=== PATIENT | female | born 1960 | race Asian ===

== ENCOUNTER 2022-04-17 13:06 | Emergency (ER) | payer OTHER ==
[~2022-04-17] VITALS: Ht 152.4 cm; Wt 56.2 kg
--- NOTE | 2022-04-17 13:24 | NUR ---
BIBFRIEND C/O RLE SWELLING, R SIDED GROIN AREA PAIN X 3 DAYS. AMBULATORY, PLACED ON BED, AAOX4, SWELLING OF R LEG NOTICED AND WARM TO TOUCH, IN PAIN 5/10 PS.
--- NOTE | 2022-04-17 13:28 | NUR ---
URINE SAMPLE COLLECTED
--- NOTE | 2022-04-17 13:35 | NUR ---
X-RAY TECH. AT BED SIDE
--- NOTE | 2022-04-17 13:40 | NUR ---
INTERNSHIP. AT BED SIDE
[2022-04-17 13:49] LABS: BASOPHILS % (AUTO) 0.8 % (0.0-2.0); EOSINOPHILS % (AUTO) 2.7 % (0.0-6.0); HEMATOCRIT 32 % (33-45); HEMOGLOBIN 10.3 g/dL (11.5-14.8); LYMPHOCYTES # (AUTO) 1.3 K/uL (0.8-4.8); LYMPHOCYTES % (AUTO) 22.5 % (20.0-44.0); MEAN CORPUSCULAR HGB CONC 32 g/dl (31.0-36.0); MEAN CORPUSCULAR VOLUME 90 fL (82-100); MONOCYTES # (AUTO) 0.6 K/uL (0.1-1.30); NEUTROPHILS # (AUTO) 3.8 K/uL (1.8-8.9); PLATELET COUNT (AUTO) 533 K/uL (150-450); RED BLOOD CELL COUNT(AUTO) 3.55 MIL/uL (4.0-5.2)
[2022-04-17 14:00] LABS: CALCIUM, SERUM 9.1 mg/dL (8.5-10.1); CARBON DIOXIDE 32 mmol/L (21-32); CHLORIDE 101 mmol/L (98-107); CREATININE 0.8 mg/dL (0.6-1.3); GLUCOSE 109 mg/dL (74-106); POTASSIUM 3.9 mmol/L (3.5-5.1); SODIUM SERUM 139 mmol/L (136-145); UREA NITROGEN, BLOOD 9 mg/dL (7-18)
[2022-04-17 14:06] LABS: ALANINE AMINOTRANSFERASE 12 U/L (12-78); ALBUMIN 3.5 g/dL (3.4-5.0); ALKALINE PHOSPHATASE 123 U/L (46-116); ASPARTATE AMINOTRANSFERASE 15 U/L (15-37); BILIRUBIN,DIRECT 0.1 mg/dL (0.0-0.2); BILIRUBIN,TOTAL 0.3 mg/dL (0.2-1.0); TOTAL PROTEIN, SERUM 8.2 g/dL (6.4-8.2)
--- NOTE | 2022-04-17 15:11 | NUR ---
DOPPLER U/S TECH AT BED SIDE
[2022-04-17] MEDS ORDERED: FUROSEMIDE 40 MG/4 ML VIAL ONE (15:34)
[2022-04-17] MEDS ORDERED: FUROSEMIDE 40 MG/4 ML VIAL IV ONE (16:00)
[2022-04-17] MEDS ORDERED: FURO-145 PO (18:14)
[2022-04-17] MEDS ORDERED: POTA-58 PO (18:14)
--- NOTE | 2022-04-17 18:54 | NUR ---
IV removed. Catheter intact and site benign. Pressure and 4x4 applied to site. No bleeding noted.Patient discharged to home in stable condition. Written and verbal after care instructions given. Patient verbalizes understanding of instruction.
[2022-04-17 18:55] VITALS: BP 145/75
== END 2022-04-17 18:30 | disposition home or self-care (01) ==
LOC: ER 13:31
DX: R60.0 Localized edema (principal); I10 Essential (primary) hypertension
CPT/HCPCS: 99285; 93970; 96374; 71045; 93005; 85025; 80048; 80076; 36415; 84484; J1940